=== PATIENT | male | born 1965 | race Caucasian/White ===

== ENCOUNTER 2019-01-09 03:40 | Emergency (ER) | payer BC, MEDICARE ==
[~2019-01-09] VITALS: Ht 172.7 cm; Wt 68.0 kg
[~2019-01-09 03:40] MED LIST: OXYC-150 PO
[2019-01-09 03:41] VITALS: BP 117/77
--- NOTE | 2019-01-09 04:47 | NUR ---
PT EMERGENCY CONTACTS CALLED TO ARRANGE TRANSPORTATION HOME. PT STATES SHE WILL COME TO GET HIM AND DRIVE HIM BACK TO [facility].
== END 2019-01-09 05:23 | disposition home or self-care (01) ==
LOC: ER 03:41
DX: S01.01XA Laceration without foreign body of scalp, initial encounter (principal); Z79.899 Other long term (current) drug therapy; Z98.890 Other specified postprocedural states; W18.39XA Other fall on same level, initial encounter; Y93.89 Activity, other specified; Y92.89 Other specified places as the place of occurrence of the external cause; Y99.8 Other external cause status
CPT/HCPCS: 70450; 99284